=== PATIENT | male | born 1995 | race African-American/Black ===

== ENCOUNTER 2022-06-03 01:22 | Emergency (ER) | payer MEDICAID ==
[~2022-06-03] VITALS: Ht 177.8 cm; Wt 59.0 kg
[2022-06-03 01:28] VITALS: BP 124/82
--- NOTE | 2022-06-03 01:32 | NUR ---
PT TO LOBBY
--- NOTE | 2022-06-03 02:02 | NUR ---
covid and flu swabs collected, taken to lab.
--- NOTE | 2022-06-03 02:02 | NUR ---
PT BIBA FROM A [facility]AS ST[facility] C/O BODY ACHES. PT DENIES TRAUMA AND DENIES TAKING ANY PAIN MEDICATION. PMH: DENIES NKA
--- NOTE | 2022-06-03 02:51 | NUR ---
PT TO BED AMBULATORY
[2022-06-03] MEDS ORDERED: ACET-10509 PO (03:13)
[2022-06-03] MEDS ORDERED: IBUP-1842 PO (03:13)
[2022-06-03 03:40] VITALS: BP 124/82
--- NOTE | 2022-06-03 04:08 | NUR ---
Patient discharged with v/s stable. Written and verbal after care instructions given and explained. Patient verbalized understanding. Ambulatory with steady gait. All questions addressed prior to discharge. Advised to follow up with PMD. Pt left with his beloningings
== END 2022-06-03 03:40 | disposition home or self-care (01) ==
LOC: MED 01:22
DX: S09.90XA Unspecified injury of head, initial encounter (principal); F07.81 Postconcussional syndrome; Z20.822 Contact with and (suspected) exposure to COVID-19; Z79.899 Other long term (current) drug therapy; Z79.1 Long term (current) use of non-steroidal anti-inflammatories (NSAID); W22.8XXA Striking against or struck by other objects, initial encounter; Y92.89 Other specified places as the place of occurrence of the external cause; Y93.89 Activity, other specified; Y99.8 Other external cause status
CPT/HCPCS: 99283